=== PATIENT | male | born 1950 | race Caucasian/White ===

== ENCOUNTER 2017-11-12 07:59 | Day surgery (SDC) | payer MEDICARE ==
[~2017-11-12] VITALS: Ht 12.8 cm; Wt 81.7 kg
[~2017-11-12 07:59] MED LIST: ALEVE220 MG PO; CENTRUM SILVER1 EAC4 PO; DICL75ER PO; FISH OIL 1,2001 EACH PO; LISI20 PO; Milk Thistle500 MG PO; SIMV40 PO; TRAM50 PO
== END 2017-11-12 13:30 | disposition home or self-care (01) ==
LOC: ORSCSDS 07:59
PROVIDERS: Orthopaedic Surgery
PROC: 0LQ14ZZ Repair Right Shoulder Tendon, Percutaneous Endoscopic Approach (ICD-10-PCS; principal; 2017-11-12 09:30)
PROC: 0RNJ4ZZ Release Right Shoulder Joint, Percutaneous Endoscopic Approach (ICD-10-PCS; principal; 2017-11-12 09:30)
DX: M75.121 Complete rotator cuff tear or rupture of right shoulder, not specified as traumatic (principal); M75.41 Impingement syndrome of right shoulder; I10 Essential (primary) hypertension; G47.33 Obstructive sleep apnea (adult) (pediatric); Z79.899 Other long term (current) drug therapy
CPT/HCPCS: C1713; J0171; J0690; J1100; J2250; J2370; J2405; J3010